=== PATIENT | female | born 1950 | race Caucasian/White ===

== ENCOUNTER 2020-01-01 17:09 | Observation (INO) ==
[2020-01-01] MEDS ORDERED: Perflutren Lipid Microsphere 1.3 ML in 0.9 % Sodium Chloride 8.7 ML IVP PRN (19:41)
[2020-01-01] MEDS: Aspirin Enteric Coated 325 MG Tablet PO SCH (20:35)
[2020-01-01 22:25] LABS: Amphetamine Screen,Urine Negative ng/mL (Cutoff=1000); Barbiturate Screen,Urine Negative ng/mL (Cutoff=200); Benzodiazepines Screen,Urine Negative ng/mL (Cutoff=200); Cannabinoid Screen,Urine Negative ng/mL (Cutoff = 50); Cocaine Screen,Urine Negative ng/mL (Cutoff= 300); Opiate Screen,Urine Negative ng/mL (Cutoff=300); Phencyclidine Screen,Urine Negative ng/mL (Cutoff=25)
[2020-01-02] MEDS: *HR* Heparin 5,000 UNIT/ML VIAL SQ SCH ×2 (05:19→13:53)
[2020-01-02 06:31] LABS: Hematocrit 43.1 % (35.3-44.9); Hemoglobin 14.2 g/dL (11.5-15.4); Mean Corpuscular HGB Conc 32.9 g/dL (31.6-35.5); Mean Corpuscular Hemoglobin 30.3 pg (28.0-33.3); Mean Corpuscular Volume 91.9 fL (83.0-100.0); Mean Platelet Volume 11.4 fL (9.4-12.4); Platelet Count 234 K/mcL (140-400); Red Blood Count 4.69 M/mcL (3.82-4.97); Red Cell Distribution Width 12.7 % (11.5-14.5); White Blood Count 8.9 K/mcL (4.3-11.1)
[2020-01-02 06:55] LABS: Alanine Aminotransferase 17 Units/L (7-52); Albumin 4.1 g/dL (3.5-5.7); Albumin/Globulin Ratio 1.8 (1.1-2.2); Alkaline Phosphatase 80 Units/L (34-104); Aspartate Amino Transferase 18 Units/L (13-39); BUN/Creatinine Ratio 19 (6-26); Bilirubin,Total 0.6 mg/dL (0.3-1.0); Blood Urea Nitrogen 16 mg/dL (8-23); Calcium 9.6 mg/dL (8.6-10.3); Carbon Dioxide 27 mEq/L (23-29); Chloride 106 mEq/L (98-107); Chol/HDL Ratio 2.9 (0-4.9); Cholesterol 127 mg/dL (< 200); Globulin 2.3 g/dL (2.4-3.5); Glucose 98 mg/dL (70-105); HDL Cholesterol 44 mg/dL (40-59); LDL Cholesterol,Calculated 55 mg/dL (< 100); LDL Cholesterol,Direct 63 mg/dL (75-193); Osmolality,Calculated 293 (280-300); Potassium 3.3 mEq/L (3.5-5.1); Sodium 141 mEq/L (136-145); Total Protein 6.4 g/dL (6.4-8.9); Triglycerides 138 mg/dL (< 150); Troponin I < 0.03 ng/mL (< 0.04); eGFR For African Americans > 60 (> 60); eGFR For Non-African Americans > 60 (> 60)
[2020-01-02 07:40] LABS: Folate > 22.3 ng/mL (3.0-16.0); Vitamin B12 560 pg/mL (250-1100)
[2020-01-02] MEDS: Aspirin Enteric Coated 325 MG Tablet PO SCH (08:52)
[2020-01-02] MEDS ORDERED: Triamterene/HCTZ 75/50 mg TABLET PO SCH (09:00)
[2020-01-02] MEDS ORDERED: PARoxetine 30 MG TABLET PO SCH (09:00)
[2020-01-02] MEDS ORDERED: NON-FORMULARY MEDICATION 1 EACH EACH (Vit A/C/E Ac/Znox/Cupric Oxide [Eye Vitamin-Minerals PO SCH (09:00)
[2020-01-02] MEDS ORDERED: Multivit/Ca/Min/Fe/FA 1 TAB TABLET PO SCH (09:00)
[2020-01-02 11:28] VITALS: BP 126/76
[2020-01-02 12:30] LABS: Estimated Average Glucose 114 mg/dl
== END 2020-01-02 15:25 | disposition home or self-care (01) ==
LOC: 3BNU → SUATTDRO 19:19
PROVIDERS: ADMIT Internal Medicine; ATTEND Internal Medicine